=== PATIENT | male | born 2000 | race Caucasian/White ===

== ENCOUNTER 2020-01-11 21:17 | Emergency (ER) | payer BC, OTHER ==
[2020-01-11] MEDS ORDERED: DEXAMETHASONE SOD PHOS INJ 10 MG/1 ML VIAL IM ONE (21:53)
[2020-01-11] MEDS ORDERED: METHYLPREDNISOLONE ACETATE INJ 40 MG/1 ML ML IM ONE (21:53)
[2020-01-11] MEDS ORDERED: ONDANSETRON 4 MG TAB.RAPDIS PO ONE (21:54)
[2020-01-11] MEDS ORDERED: PENICILLIN G BENZATHINE 1.2 MILLION UNIT/2 ML DISP.SYRIN IM ONE (21:54)
--- NOTE | 2020-01-11 21:59 | ER Document Report ---
HPI - HPI Patient complains to provider of: Sore throat sore throat Time Seen by Provider: 01/11/20 21:53 Onset: Other - This 19-year-old male presented to the emergency room today stating he had a sore throat swollen glands which is been ongoing for several days apparently he was tested for COVID on Tuesday which was negative Pain Level: 3 Associated Symptoms: None Exacerbated by: Denies Recently seen / treated by doctor: Yes Past Medical History - General Information source: Patient - Social History Smoking Status: Never Smoker Cigarette use (# per day): No Chew tobacco use (# tins/day): No Frequency of alcohol use: None Drug Abuse: None Family History: None Patient has homicidal ideation: No Vertical Provider Document - CONSTITUTIONAL Agree With Documented VS: Yes Exam Limitations: No Limitations - INFECTION CONTROL TRAVEL OUTSIDE OF THE [place] IN LAST 30 DAYS: No - HEENT HEENT: Atraumatic, Conjuctival Injection, Normocephalic, PERRLA - NECK Neck: Normal Inspection - RESPIRATORY Respiratory: Breath Sounds Normal - CARDIOVASCULAR Cardiovascular: Regular Rate, Regular Rhythm - GI/ABDOMEN Gastrointestinal: Abdomen Soft, Abdomen Non-Tender - REPRODUCTIVE Male Genitalia: Normal Inspection - BACK Back: Normal Inspection - MUSCULOSKELETAL/EXTREMETIES Musculoskeletal/Extremeties: MAEW - NEURO Level of Consciousness: Awake, Alert Motor/Sensory: No Motor Deficit - DERM Integumentary: Warm Course - Re-evaluation Re-evalutation: 01/11/20 21:55 Posterior pharynx is erythemic he is got gross exudate on both sides he is got swollen lymph nodes on both sides his tonsils are +3 he is able to manage his secretions swallow and take in nourishment although he has had some emesis. He was seen and had a COVID test on Tuesday which was negative. - Vital Signs Vital signs: Temp Pulse Resp BP Pulse Ox 98.5 F 85 16 133/62 H 99 01/11/20 21:44 01/11/20 21:22 01/11/20 21:22 01/11/20 21:22 01/11/20 21:22 Discharge - Discharge Clinical Impression: Pharyngitis Qualifiers: Pharyngitis/tonsillitis etiology: unspecified etiology Qualified Code(s): J02.9 - Acute pharyngitis, unspecified Reactive airway disease Qualifiers: Asthma severity: moderate Asthma persistence: persistent Asthma complication type: with acute exacerbation Qualified Code(s): J45.41 - Moderate persistent asthma with (acute) exacerbation Disposition: HOME, SELF-CARE Instructions: Reactive Airway Disease ([facility]) Additional Instructions: Sore Throat Sore throats may be caused by viruses, bacteria, or fungi. Most are due to a virus, and must get better on their own. Bacterial sore throats, particularly those due to "strep," need treatment with antibiotics. If an antibiotic is prescribed, be sure to take the medication for a full 10 days. Failure to take the antibiotic can result in complications such as rheumatic fever. Sometimes, an injection of antibiotics is given instead of pills or liquid. This single "shot" is equal in effectiveness to the oral medication. To relieve symptoms, take acetaminophen for pain. Sip clear liquids frequently, or eat popsicles or ice chips. Anesthetic sprays or lozenges may he lp. Make sure the air in the room is not too dry. Avoid using decongestants or antihistamines. Call the doctor if there is no improvement in two days, or if you have difficulty breathing, increasing throat pain, high fever, rash, or frequent vomiting. Increase fluid intake rest medication as prescribed follow-up with PMD in 3 to 4 days. Return to the emergency room for any change worsening condition. Prescriptions: Prednisone [Deltasone 20 mg Tablet] 3 tab PO DAILY 5 Days tablet Penicillin V Potassium [Penicillin Vk 500 mg Tablet] 500 mg PO BID #20 tablet Ondansetron [Zofran Odt 4 mg Tablet] 1 - 2 tab PO Q4H PRN #15 tab.rapdis PRN Reason: For Nausea/Vomiting
[2020-01-11 23:17] VITALS: BP 125/68
== END 2020-01-11 23:17 | disposition home or self-care (01) ==
LOC: ER 21:17
DX: J02.9 Acute pharyngitis, unspecified (principal); J45.41 Moderate persistent asthma with (acute) exacerbation; R11.10 Vomiting, unspecified; R59.0 Localized enlarged lymph nodes
CPT/HCPCS: 99282; 96372; S0119; J1030; J0561; J1100